=== PATIENT | female | born 1970 | race Caucasian/White ===

== ENCOUNTER 2019-03-14 09:32 | Emergency (ER) | payer MEDICAID ==
[~2019-03-14] VITALS: Ht 157.5 cm; Wt 100.0 kg
[~2019-03-14 09:32] MED LIST: LIDOcaine 1% W/epiNEPHrine 1:100,000 20ml vial ONE
[2019-03-14 09:36] VITALS: BP 105/81
== END 2019-03-14 11:28 | disposition home or self-care (01) ==
LOC: ER 09:33
DX: M25.562 Pain in left knee (principal)
CPT/HCPCS: 29505; 73564; 99283

== ENCOUNTER 2022-08-26 09:21 | Emergency (ER) | payer MEDICAID ==
[~2022-08-26] VITALS: Ht 157.5 cm; Wt 110.0 kg
[2022-08-26 09:25] VITALS: BP 176/80
[2022-08-26] MEDS ORDERED: CLIN300C54 PO (09:53)
[2022-08-26] MEDS ORDERED: FLUC150T22 PO (10:11)
[2022-08-27] MEDS ORDERED: METR-159 PO (10:35)
[2022-08-27] MEDS ORDERED: SULF1TAB49 PO (10:35)
[2022-08-27] MEDS ORDERED: FLUC100T PO (10:35)
== END 2022-08-26 10:16 | disposition home or self-care (01) ==
LOC: ER 09:22
DX: K04.7 Periapical abscess without sinus (principal); R59.1 Generalized enlarged lymph nodes; Z88.1 Allergy status to other antibiotic agents; Z79.2 Long term (current) use of antibiotics
CPT/HCPCS: 99283

== ENCOUNTER 2022-08-27 08:46 | Emergency (ER) | payer MEDICAID ==
[~2022-08-27] VITALS: Ht 157.5 cm; Wt 97.4 kg
[~2022-08-27 08:46] MED LIST changes: +CLIN300C54 PO; +FLUC150T22 PO; -LIDOcaine 1% W/epiNEPHrine 1:100,000 20ml vial ONE
[2022-08-27 08:59] VITALS: BP 151/100
[2022-08-27] MEDS ORDERED: LIDOcaine 1% W/epiNEPHrine 1:100,000 20ml vial SQ ONE (09:20)
[2022-08-27] MEDS ORDERED: metroNIDAZOLE 500mg tablet PO ONE (10:35)
[2022-08-27] MEDS ORDERED: METR-159 PO (10:35)
[2022-08-27] MEDS ORDERED: sulfamethoxazole/trimethoprim DS (800/160mg) tablet PO ONE (10:35)
[2022-08-27] MEDS ORDERED: SULF1TAB49 PO (10:35)
[2022-08-27] MEDS ORDERED: FLUC100T PO (10:35)
== END 2022-08-27 11:05 | disposition home or self-care (01) ==
LOC: ER 08:46
DX: K04.7 Periapical abscess without sinus (principal); Z88.1 Allergy status to other antibiotic agents; Z79.2 Long term (current) use of antibiotics; Z79.899 Other long term (current) drug therapy
CPT/HCPCS: 41800; 87070; 99284